=== PATIENT | female | born 1985 | race African-American/Black ===

== ENCOUNTER 2017-05-13 12:01 | Inpatient (IN) | payer SELFPAY ==
[~2017-05-13] VITALS: Ht 162.6 cm; Wt 108.3 kg
[2017-05-13 12:59] LABS: BASOPHILS 0.2 % (0-2); EOSINOPHILS 2.5 % (0-7); HEMATOCRIT 37.7 % (36.0-48.0); HEMOGLOBIN 12.3 g/dL (12-16); IMMATURE GRANULOCYTES 0.5 % (0-5); MCH 28.5 pg (26.0-34.0); MCHC 32.6 g/dL (31.0-37.0); MCV 87.5 fL (80.0-100.0); MEAN PLATELET VOLUME 10.5 fL (7.4-10.4); MONOCYTES 7.3 % (2-11); NEUTROPHILS 68.5 % (40-80); PLATELET COUNT 255 10x3/uL (130-400); RBC 4.31 10x6/uL (4.00-5.40); WBC 10.2 10x3/uL (4.8-10.8)
[2017-05-13 13:14] LABS: ALBUMIN 3.2 g/dL (3.4-5.0); ALKALINE PHOSPHATASE 75 U/L (46-116); ALT (SGPT) 15 U/L (10-68); BILIRUBIN - TOTAL 0.17 mg/dL (0.2-1.3); CALC OSMOLALITY 273 mosm/kg (275-300); CALCIUM 8.7 mg/dL (8.5-10.1); CARBON DIOXIDE 26.4 mmol/L (21.0-32.0); CHLORIDE - SERUM 105 mmol/L (98-107); CREATININE - SERUM 0.9 mg/dL (0.6-1.3); GLUCOSE 83 mg/dL (74-106); POTASSIUM - SERUM 4.1 mmol/L (3.5-5.1); PROTEIN - SERUM 7.7 g/dL (6.4-8.2); SODIUM 137 mmol/L (136-145); UREA NITROGEN 14 mg/dL (7-18); eGFR NON AFRICAN AMERICAN 78 mL/min (90-120)
[2017-05-13 13:15] LABS: CREATINE KINASE 41 UL (21-215); MAGNESIUM - SERUM 1.8 mg/dL (1.8-2.4)
[2017-05-13 13:30] LABS: UDS - AMPHET NEGATIVE QUAL (NEGATIVE); UDS - BARB NEGATIVE QUAL (NEGATIVE); UDS - BENZO NEGATIVE QUAL (NEGATIVE); UDS - COCAINE NEGATIVE QUAL (NEGATIVE); UDS - METH NEGATIVE QUAL (NEGATIVE); UDS - OPIATE NEGATIVE QUAL (NEGATIVE); UDS - PCP NEGATIVE QUAL (NEGATIVE); UDS - THC NEGATIVE QUAL (NEGATIVE)
[2017-05-13 13:31] LABS: APPEARANCE CLEAR (CLEAR); BILIRUBIN NEGATIVE (NEGATIVE); COLOR YELLOW (YELLOW); GLUCOSE NEGATIVE (NEGATIVE); KETONE NEGATIVE (NEGATIVE); LEUKOCYTE ESTERASE TRACE (NEGATIVE); NITRITE NEGATIVE (NEGATIVE); PH 7.5 (5.0-6.0); PROTEIN NEGATIVE (NEGATIVE); UROBILINOGEN NORMAL (NORMAL)
[2017-05-13 13:32] LABS: BACTERIA FEW /hpf (NONE SEEN); EPITHELIAL CELLS 0-5 /hpf (0-5); MUCUS <1+ /lpf (NONE SEEN); RED CELLS - URINE 0-5 /hpf (0-5); WHITE CELLS - URINE 0-5 /hpf (0-5)
--- NOTE | 2017-05-13 16:54 | NUR ---
1635 RECEIVED REPORT FROM SARITA IN ER. PATIENT TO UNIT SOON.
--- NOTE | 2017-05-13 17:04 | NUR ---
PT ARRIVED TO FLOOR VIA WHEELCHAIR BY ER STAFF. PT APPEARS TO BE CONFUSED ABOUT WHAT HAPPEN TO HER AND WHY SHE IS HERE AT THE HOSPITAL. PT HAS AN IV IN HER LEFT AC. LOPEZ DRAINING CLEAR YELLOW, DATED FOR 05/13/17. PT SMELLS OF A STRONG BODY ODOR. WILL ADMIT.
[2017-05-13 17:40] VITALS: BP 118/78; Ht 162.6 cm; Wt 108.3 kg
--- NOTE | 2017-05-13 18:15 | NUR ---
PATIENT RESTING IN BED WITH EYES OPEN. CALL LIGHT WITHIN REACH. ATTENTION TOWARD TELEVISON. NO DISTRESS.
[2017-05-13 20:00] VITALS: BP 107/69
--- NOTE | 2017-05-13 20:15 | NUR ---
PT ASKED IF SHE COULD TAKE THE LOPEZ CATH OUT AND IF SHE COULD GO OUTSIDE AND "SMOKE SOMETHING." PT IS A&O UNTIL I ASK ABOUT THE CURRENT SITUATION. INFORMED HER THAT THIS WAS A NON SMOKING CAMPUS. SHE STATES THAT SHE IS OKAY AT THE MOMENT, BUT WANTS A WARM BLANKET. WARM BLANKET DELIVERED TO HER. CALL LIGHT IN REACH. WILL CONT TO MONITOR.
--- NOTE | 2017-05-13 23:00 | NUR ---
SHIFT ASSESSMENT COMPLETE. PT A&O TO PERSON, PLACE AND TIME. SHE HAS CLEAR SPEECH WHEN SHE IS DISCUSSING ANYTHING ELSE OTHER THAN THE SITUATION AT HAND. WHEN ASKED ABOUT WHAT HAPPENED, SHE MUMBLES AND MAKES OUT SOME WORDS, BUT IT IS HARD TO UNDERSTAND HER. SHE STATES THAT SHE DOES LIVE WITH SOMEONE ELSE, BUT THAT WAS ALL THAT I WAS ABLE TO GET FROM HER REGUARDING THE SITUATION. HAND MAIL CLERKS SUPERVISOR ARE STRONG AND EQUAL WELL FOOT PUMPS. RADIAL AND PEDAL PULSES PALP. SKIN WARM TO TOUCH AND MOIST. SHE STATES THAT SHE IS COLD. IV IN L FOREARM INFUSING NS @ 50 ML/HR. PT STATES THAT SHE WANTS TO SLEEP AT THIS TIME AND SHE THINKS SHE IS DEHYDRATED. WILL CONT TO MONITOR CLOSELY. VSS. CALL LIGHT IN REACH.
[2017-05-14] VITALS: BP 110/69
--- NOTE | 2017-05-14 01:02 | NUR ---
EMPTIED 900 CC'S CLEAR YELLOW URINE. NO ACUTE DISTRESS NOTED. WILL CONT TO MONITOR.
[2017-05-14 04:00] VITALS: BP 108/74
--- NOTE | 2017-05-14 04:03 | NUR ---
PT SLEEPING ON BACK AT THIS TIME. NO SIGNS OF ACUTE DISTRESS NOTED. LOPEZ CATH DRAINING CLEAR YELLOW URINE. NS INFUSING AT 50 ML/HR. WILL CONT TO MONITOR.
--- NOTE | 2017-05-14 05:45 | NUR ---
PT SLEEPING AT THIS TIME. UPON AWAKENING HER SPEECH IS SLURRED. SHE STATES THAT SHE WANTS TO GO BACK TO BED AT THIS TIME. TV ON. CALL LIGHT IN REACH. NO SIGNS OF ACUTE DISTRESS NOTED. WILL CONT TO MONITOR.
--- NOTE | 2017-05-14 08:07 | NUR ---
AM ROUNDING- RECEIVED REPORT FROM CORRECTIVE THERAPIST NURSE PUMA. PT IS CURRENTLY LAYING IN BED ON BACK WITH EYES CLOSED RESTING. ON ROOM AIR. NO MONITOR. IV SEEN TO LEFT FOREARM WITH NS RUNNING AT 50CC. LOPEZ CATHETER SEEN. BED IS IN LOW POSITION AND CALL LIGHT IS IN REACH. WILL CONTINUE TO MONITOR AND CONTINUE WITH PLAN OF CARE.
[2017-05-14 08:13] VITALS: BP 105/49
[2017-05-14 12:01] VITALS: BP 118/76
--- NOTE | 2017-05-14 15:06 | NUR ---
UPON DOING PTS DAILY SHIFT ASSESSMENT, NOTICED PT APPEARS TO BE MUMBLING WORDS UNDER HER BREATH. PT ALSO ANSWERS QUESTIONS INAPPROPIATELY, LAUGHING TO SELF WHEN ASKING QUESTIONS. PT STATED WHILE DOING SHIFT ASSESMENT, "YOU CAN WRITE DOWN KIMBERLEE AND CALL ME THAT". PT APPEARS TO MAKE INAPPROPRIATE SOUND WHILE IN ROOM. WILL CONTINUE TO MONITOR.
[2017-05-14 16:01] VITALS: BP 124/66
--- NOTE | 2017-05-14 18:18 | NUR ---
PT IS CURRENTLY LAYING IN BED ON BACK WITH EYES OPEN RESTING. PT DENIES ANY NEED AT CURRENT TIME. CALL LIGHT IS IN REACH. WILL CONTINUE TO MONITOR.
[2017-05-14 20:00] VITALS: BP 119/76
--- NOTE | 2017-05-14 20:54 | NUR ---
PT AWAKE, ALERT, DENIES ANY NEEDS AT THIS TIME. I REVIEWED THE USE OF CALL LIGHT, PT STATED SHE UNDERSTOOD AND WOULD CALL WITH ANY NEEDS. PT IN NO ACUTE DISTRESS AT THIS TIME. CONTINUE TO MONITOR CLOSELY. BED LOW, CALL LIGHT IN REACH, SIDE RAILS X 2, HOB 35-40 DEGREES. PT IS PLEASANT, GIGGLES AFTER EACH VERBAL STATEMENT.
[2017-05-15] VITALS: BP 117/62
--- NOTE | 2017-05-15 00:21 | NUR ---
PT LYING IN BED, HEAD TURNED TO LEFT SIDE, EYES CLOSED, RESPIRATIONS EVEN AND UNLABORED, EASILY ROUSABLE TO VERBAL STIMULI. CONTINUE TO MONITOR CLOSELY.
[2017-05-15 04:00] VITALS: BP 113/71
--- NOTE | 2017-05-15 08:12 | NUR ---
SITTING UP IN BED EATING BREAKFAST. OFFERS NO COMPLAINTS. FLAT AFFECT. CALL LIGHT IN REACH. WILL CONTINUE TO MONITOR.
[2017-05-15 09:39] VITALS: BP 117/44
--- NOTE | 2017-05-15 10:22 | NUR ---
A FAMILY FRIEND SHOWED UP AT NURSES DESK INQUIRING ABOUT PT WENT INTO ROOM AND ASKED PT IF SHE KNEW THE MAN SHE STATED YES AND GAVE PERMISSION TO SPEAK WITH HIM. HIS NAME IS VENKAT ERIC [phone] AND STATES SHE HAS BEEN LIVING WITH HIM FOR THE PAST 4 YEARS. PT STATES THAT HE WILL NOT ALLOW HER TO LEAVE THE HOUSE, VENKAT STATES IT IS BECAUSE PT WILL NOT WEAR CLOTHES. VENKAT STATES PT ALWAYS RUNS OFF WHEN HE LEAVES THE HOUSE AND HAS TO GO LOOKING FOR HER. PT SEEMS TO DISAGREE BY SHAKING HER HEAD. WHEN VENKAT LEFT PT MUMBLED THE WORD "PIMP" I ASKED PT IF HE WAS HER PIMP DUE TO VENKAT STATING PT HAS DONE PROSTITUTION IN THE PAST AND HAS BEEN AT [employer] WELL. PT JUST SMILED IN RETURN. I ADVISED BRANDIN PROCESS INSPECTOR OF SITUATION.
--- NOTE | 2017-05-15 11:37 | NUR ---
UP IN SHOWER. NO DISTRESS. WILL CONTINUE TO MONITOR.
[2017-05-15 12:12] VITALS: BP 120/60
--- NOTE | 2017-05-15 13:50 | NUR ---
SPOKE WITH JUSTIN JON IN REGARDS TO DC LOPEZ AND IV IN ORDER TO GET PLACEMENT IN PSYCH FACILITY. JUSITN GAVE VERBAL ORDERS TO DC BOTH IV AND LOPEZ.
--- NOTE | 2017-05-15 14:29 | NUR ---
DC RIGHT FOREARM IV CATH TIP INTACT PRESSURE DRESSING INTACT. REMOVED 8ML NS FROM LOPEZ BULB AND REMOVED LOPEZ WITHOUT DIFFICULTY. PT TOLERATED WELL. LYING IN BED RESTING COMFORTABLY. WILL CONTINUE TO MONITOR
--- NOTE | 2017-05-15 15:00 | NUR ---
Patient Name: JUNIOR BENDER Admission Status: ER Accout number: [id number] Admission Date: 05-13-2017 : 1985 Admission Diagnosis: Attending: AYAN Current LOS: 2 Anticipated DC Date: 05-15-2017 Planned Disposition: Inpatient Psych Facility Primary Insurance: UNINSURED DISCOUNT PLAN PLANNED EXTERNAL PROVIDER: [facility] Discharge Planning Comments: * Is the patient Alert and Oriented? Yes 0 * How many steps to enter\\exit or inside your home? NONE 0 * PCP NONE 0 * Pharmacy "ANY PUBLIC PHARMACY" 0 * Preadmission Environment Home with Family 0 * ADLs Independent 0 * Equipment None 0 * Other Equipment NO MEDICAL EQUIPMENT PROVIDER PREFERNECE 0 * List name and contact numbers for known caregivers / representatives who currently or will assist patient after discharge: VENKAT ERIC, SIGNIFICANT OTHER, [address] [place] [place] [place]. [address], 0 * Community resources currently utilized None 0 * Please name any agencies selected above. NONE 0 * Additional services required to return to the preadmission environment? Yes * Can the patient safely return to the preadmission environment? Yes 0 * Has this patient been hospitalized within the prior 30 days at any hospital? No [address] GUTIERREZ WHO HAS EVALUATED PT AND INFORMED CM THAT PT WILL REQUIRE INPATIENT PSYCHIATRIC TREATMENT DUE TO SCHIZOPHRENIA. CM MET WITH PT IN ROOM TO DISCUSS DISCHARGE PLANNING AND NEEDS. PT REPORTS LIVING AT HOME INDEPENDENTLY AND ALONE. PT CANNOT TELL CM HER ADDRESS, REPORTS [address]WHERE OFF OF [facility]. PT DENIES LIVING IN [place], REPORTS SHE USED TO LIVE THERE ON [facility]. PT HAS NO MEDICAL EQUIPMENT AND NO OUTSIDE SERVICES ASSISTING IN THE HOME. CM DISCUSSED AVAILABILITY OF HOME HEALTH, REHAB SERVICES AND MEDICAL EQUIPMENT. PT DENIES DISCHARGE NEEDS, REPORTS SOMEONE WILL PICK HER UP FOR DISCHARGE HOME BUT SHE DOES NOT KNOW WHO. PT DENIES HAVING ANY PSYCHIATRIC OR PHYSICAL ILLNESS. PT REPORTS NOT HAVING ANY DOCTOR, NOT TAKING ANY MEDICINE AND NEVER HAVING BEEN IN PSYCHIATRIC HOSPITAL. PT HAS NO JOB AND DOES NOT RECEIVE DISABIITY. PT REPORTS SHE PAYS HER RENT, DOES NOT KNOW TO WHO NOR HOW SHE GETS MONEY FOR LIVING. CM ASKED PT WHO VENKAT WAS, PT DENIES KNOWING VENKAT. CM EXPLAINED THAT VENKAT ERIC HAD VISITED PT [facility] TODAY AND TOLD THE NURSE THAT PT LIVES WITH VENKAT. PT STATED SHE DID NOT KNOW THE ALLYSSA THAT VISITED HER TODAY. CM DISCUSSED DR. MIRAMONTES ASSESSMENT AND NEED FOR INPATIENT PSYCHIATRIC CARE. PT WILL GO VOLUNTARIALLY BUT AGAIN STATES SHE THINKS SHE IS OK. CM CALLED [facility] [employer], SPOKE TO DAYAN WHO REPORTS ONLY HAVING FAILURE TO APPEAR IN 2014 AND THEFT OF A BACK PACK IN 2013; BIRTHDATE VERIFIED. CM CALLED [facility]'S DEPARTMENT WHO HAD NO INFORMATION ON PT AND ONLY SHOWED THE [place] ADDRESS. CM CALLED [facility], , SPOKE TO MEGHNA AND FAXED REFERRAL FOR PLACEMENT; REQUEST MADE FOR CM TO CONTACT [facility] TO REQUEST ASSESSSMENT FOR CONTRACT PLACEMENT. CM CALLED [facility], , SPOKE TO JOCELYNN WHO WILL COME AND EVALUATE PT SHORTLY. JOCELYNN ADVISED THAT PT HAD INVOLUNTARY COMMITTMENT IN JANUARY 2017 AT [facility] FOR LIKE BEHAVIOR EXCEPT THAT SHE WAS ALSO SLAPPING HER SIGNIFICANT OTHER, VENKAT ERIC, WITH WHOM PT LIVES WITH. CM RECEIVED CALL FROM [facility] WHO INFORMED THAT [facility] HAS NO CAPABILITY FOR PT. CM NOTIFIED PT. JOCELYNN ARRIVED AND COMPLETED ASSESSMENT, APPROVED FOR PLACEMENT CONTRACT. CM CALLED [facility], , PROVIDED REFERRAL TO JUNIOR; CM FAXED REFERRAL TO [facility] [place] AT [phone]. CM CALLED AND SPOKE TO VENKAT ERIC, PT'S SIGNIFICANT OTHER, , WHO REPORTS THAT IT IS UNUSUAL FOR PT TO NOT REMEMBER HIM OR THEIR HOME ADDRESS. IT IS NOT UNUSUAL FOR PT TO LEAVE THE HOME AND WONDER WHEN HE LEAVES HER HOME ALONE. PT HAS BEEN DIAGNOSED WITH SCHIZOPHRENIA AT [facility] IN JANUARY BUT PT COULD NOT AFFORD THE MEDICATION PT HAS NO INSURANCE. THEY CANNOT APPLY FOR MEDICAID FOR PT SHE HAS NO IDENTIFICATION. PT WAS ABANDONED BY HER SISTER AND AFTER MEETING VENKAT, MOVED IN WITH HIM. VENKAT REPORTS HE MAY HAVE TO TAKE PT TO [place] TO GET AN ID FOR PT, HE IS NOT SURE. HE PLANS TO PICK PT UP AFTER DISCHARGE AND ASKED TO BE NOTIFIED. SOSA WAITING ADMISSION DETERMINATION FROM [facility]. Outdoor Power Equipment Mechanic: Joaquin Uriostegui
[2017-05-15 16:37] VITALS: BP 128/41
[2017-05-15 17:23] LABS: HCG URINE NEGATIVE (NEGATIVE)
--- NOTE | 2017-05-15 18:27 | NUR ---
CALLED REPORT TO IVELISSE AT [facility].
--- NOTE | 2017-05-15 20:03 | NUR ---
COBRA FORM INITIATED. PATIENT ACCEPTED BY DR JOLLY AT [facility]. SHE HAS BEEN ASSIGNED TO ROOM 219 BED II. PRIMARY NURSE CALLED REPORT TO IVELISSE HAYNES RN. CM CALLED [facility] FOR TRANSPORTATION VIA AMBULANCE. SPOKE WITH SYLVIA. PCS FORM COMPLETED. CM SPOKE WITH NURSING PROFESSOR OF VISUAL ARTS, GAVIOTA MARTINO , REGARDING PATIENT'S MENTAL STATUS. PATIENT CONSENTS TO TRANSFER BUT IS CONFUSED AND HAS VARYING DEGREES OF MENTATION. PATIENT'S ONLY CONTACT, VENKAT ERIC, HAD BEEN NOTIFIED OF PLAN FOR TRANSFER TO PSYCH FACILITY BY DEVELOPMENT DIRECTOR,SUZAN ZAVALA. PER PRIMARY MD, PSYCHIATRIST AND [facility] BEHAVIORAL WELLNESS COUNSELOR INPATIENT PSYCHIATRIC CARE WAS MOST APPROPRIATE FOR HER PRESENT STATE.
--- NOTE | 2017-05-15 20:12 | NUR ---
PT TAKEN VIA EMS PER ORDER AT THIS TIME. PT WAS INITIALLY UPSET, REFUSING TO GO, STATED SHE DID NOT NEED THERAPY, THAT SHE HAS A HOME ON [address], BUT EVENTUALLY CALMED DOWN AND BEGAN COOPERATING. PT TRANSFERRED FROM HER HOSPITAL BED TO THE EMS STRETCHER WITHOUT INCIDENT. PROPER PAPERWORK GIVEN TO EMS WORKERS, PT NOW GONE.
--- NOTE | 2017-05-15 20:14 | NUR ---
IV REMOVED PRIOR TO MY SHIFT, PTS BELONGINGS IN BAG ALSO GIVEN TO EMS AND TRANSPORTED WITH PT. PTS LOPEZ REMOVED PRIOR TO MY SHIFT. PT DENIED NEEDING TO USE BATHROOM, DENIED ANY NEEDS AT THIS TIME.
== END 2017-05-15 20:16 | disposition short-term general hospital (02) | DRG 948 ==
LOC: D.ER 12:01 → EDBD 15:43 → D.M2 15:43
PROVIDERS: Emergency Medicine; ADMIT Family Medicine
DX: R41.82 Altered mental status, unspecified (principal); F20.9 Schizophrenia, unspecified; I10 Essential (primary) hypertension; Z72.0 Tobacco use

== ENCOUNTER 2018-04-29 13:46 | Observation (INO) | payer MEDICAID ==
[~2018-04-29] VITALS: Ht 162.6 cm; Wt 85.6 kg
--- NOTE | ~2018-04-29 | MORECARE ---
CASE MANAGEMENT DISCHARGE SUMMARY PATIENT: JUNIOR BENDER UNIT: [id number] ADM DATE: 04/29/18 AGE: 32 : [birth year] SEX: F ROOM/BED: D.2599 AUTHOR: LING, PHYSICIAN: REFERRING PHYSICIAN: CINDY SARMIENTO DO DATE OF SERVICE: 04/29/18 Discharge Plan Patient Name: JUNIOR BENDER Facility: [facility]:[place] : 1985 Planned Disposition: Home Anticipated Discharge Date: 05/02/18 Discharge Date: Expected LOS: 3 Initial Reviewer: [email or web address] Initial Review Date: 04/29/2018 Generated: 05/02/18 6:15 pm Patient Name: JUNIOR BENDER Page [id number] All edits/amendments must be made on the electronic document DICTATION DATE: 05/02/181713 BUSINESS OPERATIONS DIRECTOR: 05/02/181713 RPT#: [id number] MO DATE: STATUS: ADM IN [facility] [address] [place] [address] END OF REPORT
[2018-04-29 14:26] LABS: BASOPHILS 0.1 % (0-2); EOSINOPHILS 0.1 % (0-7); HEMATOCRIT 37.3 % (36.0-48.0); IMMATURE GRANULOCYTES 0.4 % (0-5); LYMPHOCYTES 11.1 % (15-50); MCH 29.7 pg (26.0-34.0); MCHC 34.9 g/dL (31.0-37.0); MCV 85.4 fL (80.0-100.0); MEAN PLATELET VOLUME 11.4 fL (7.4-10.4); MONOCYTES 5.9 % (2-11); NEUTROPHILS 82.4 % (40-80); PLATELET COUNT 228 10x3/uL (130-400); RBC 4.37 10x6/uL (4.00-5.40); RDW 14.3 % (11.5-14.5)
[2018-04-29 14:45] LABS: APPEARANCE CLOUDY (CLEAR); BILIRUBIN NEGATIVE (NEGATIVE); COLOR DK YELLOW (YELLOW); GLUCOSE NEGATIVE (NEGATIVE); KETONE MODERATE mg/dL (NEGATIVE); NITRITE NEGATIVE (NEGATIVE); PROTEIN 1+ mg/dL (NEGATIVE); SPECIFIC GRAVITY 1.015 (1.005-1.020)
[2018-04-29 14:47] LABS: HCG SERUM NEGATIVE (NEGATIVE)
[2018-04-29 14:49] LABS: BACTERIA MODERATE /hpf (NONE SEEN); MUCUS >1+ /lpf (NONE SEEN); RED CELLS - URINE >50 /hpf (0-5)
[2018-04-29 15:10] LABS: ALBUMIN 3.8 g/dL (3.4-5.0); ALKALINE PHOSPHATASE 58 U/L (46-116); ALT (SGPT) 11 U/L (10-68); CALCIUM 9.1 mg/dL (8.5-10.1); CARBON DIOXIDE 26.9 mmol/L (21.0-32.0); CHLORIDE - SERUM 99 mmol/L (98-107); CREATININE - SERUM 0.9 mg/dL (0.6-1.3); PROTEIN - SERUM 7.8 g/dL (6.4-8.2); SODIUM 139 mmol/L (136-145); THYROID STIMULATING HORMONE 0.94 uIU/mL (0.36-3.74); UREA NITROGEN 4 mg/dL (7-18); eGFR NON AFRICAN AMERICAN 77 mL/min (90-120)
[2018-04-29 15:13] LABS: CALC OSMOLALITY 272 mosm/kg (275-300); GLUCOSE 62 mg/dL (74-106)
[2018-04-29 15:14] LABS: POTASSIUM - SERUM 2.8 mmol/L (3.5-5.1)
[2018-04-29 15:32] LABS: UDS - AMPHET NEGATIVE QUAL (NEGATIVE); UDS - BARB NEGATIVE QUAL (NEGATIVE); UDS - BENZO NEGATIVE QUAL (NEGATIVE); UDS - COCAINE NEGATIVE QUAL (NEGATIVE); UDS - OPIATE NEGATIVE QUAL (NEGATIVE); UDS - PCP NEGATIVE QUAL (NEGATIVE); UDS - THC NEGATIVE QUAL (NEGATIVE)
[2018-04-29 16:00] VITALS: BP 142/80
[2018-04-29] MEDS ORDERED: POTASSIUM CHLO20 MEQ PO (16:47)
[2018-04-29] MEDS ORDERED: MACROBID100 MG PO (16:47)
[2018-04-29 20:00] VITALS: BP 126/84
[2018-04-29 23:49] VITALS: BP 126/84; Ht 162.6 cm; Wt 85.6 kg
[2018-04-30] VITALS: BP 117/82
[2018-04-30 04:00] VITALS: BP 113/76
[2018-04-30 04:38] LABS: BASOPHILS 0.2 % (0-2); EOSINOPHILS 1.5 % (0-7); HEMATOCRIT 30.9 % (36.0-48.0); HEMOGLOBIN 10.8 g/dL (12-16); IMMATURE GRANULOCYTES 0.3 % (0-5); LYMPHOCYTES 28.6 % (15-50); MCH 29.6 pg (26.0-34.0); MCV 84.7 fL (80.0-100.0); MEAN PLATELET VOLUME 11.5 fL (7.4-10.4); NEUTROPHILS 62.4 % (40-80); PLATELET COUNT 202 10x3/uL (130-400); RBC 3.65 10x6/uL (4.00-5.40); RDW 14.7 % (11.5-14.5)
[2018-04-30 04:42] LABS: WBC 8.6 10x3/uL (4.8-10.8)
[2018-04-30 05:01] LABS: CALCIUM 8.5 mg/dL (8.5-10.1); CHLORIDE - SERUM 105 mmol/L (98-107); SODIUM 141 mmol/L (136-145); UREA NITROGEN 3 mg/dL (7-18)
[2018-04-30 05:12] LABS: CALC OSMOLALITY 278 mosm/kg (275-300); CREATININE - SERUM 0.6 mg/dL (0.6-1.3); GLUCOSE 122 mg/dL (74-106); eGFR NON AFRICAN AMERICAN > 90 mL/min (90-120)
[2018-04-30 08:55] VITALS: BP 126/80
[2018-04-30 12:26] VITALS: BP 135/87
[2018-04-30 17:36] VITALS: BP 128/86
[2018-04-30 20:00] VITALS: BP 122/74
[2018-05-01] VITALS: BP 113/81
[2018-05-01 04:00] VITALS: BP 128/91
[2018-05-01 05:06] LABS: BASOPHILS 0.3 % (0-2); EOSINOPHILS 2.4 % (0-7); HEMOGLOBIN 10.1 g/dL (12-16); IMMATURE GRANULOCYTES 0.3 % (0-5); LYMPHOCYTES 34.7 % (15-50); MCH 28.9 pg (26.0-34.0); MCHC 33.7 g/dL (31.0-37.0); MEAN PLATELET VOLUME 11.6 fL (7.4-10.4); MONOCYTES 7.3 % (2-11); PLATELET COUNT 195 10x3/uL (130-400); RBC 3.49 10x6/uL (4.00-5.40); RDW 15.2 % (11.5-14.5); WBC 7.4 10x3/uL (4.8-10.8)
[2018-05-01 05:35] LABS: ALKALINE PHOSPHATASE 61 U/L (46-116); CALC OSMOLALITY 274 mosm/kg (275-300); CALCIUM 8.1 mg/dL (8.5-10.1); CARBON DIOXIDE 30.7 mmol/L (21.0-32.0); CHLORIDE - SERUM 107 mmol/L (98-107); CREATININE - SERUM 0.5 mg/dL (0.6-1.3); GLUCOSE 88 mg/dL (74-106); POTASSIUM - SERUM 3.1 mmol/L (3.5-5.1); SODIUM 140 mmol/L (136-145); UREA NITROGEN 3 mg/dL (7-18); eGFR NON AFRICAN AMERICAN > 90 mL/min (90-120)
[2018-05-01 05:36] LABS: ALBUMIN 2.6 g/dL (3.4-5.0); ALT (SGPT) 15 U/L (10-68); PROTEIN - SERUM 5.7 g/dL (6.4-8.2)
[2018-05-01 08:29] VITALS: BP 125/89
[2018-05-01 11:59] VITALS: BP 87/41
[2018-05-01 15:30] VITALS: BP 140/84
[2018-05-01 20:00] VITALS: BP 139/83
[2018-05-02] VITALS: BP 124/83
[2018-05-02 04:00] VITALS: BP 117/69
[2018-05-02 05:15] LABS: ALBUMIN 2.6 g/dL (3.4-5.0); ALKALINE PHOSPHATASE 70 U/L (46-116); BILIRUBIN - TOTAL 0.24 mg/dL (0.2-1.3); CALC OSMOLALITY 276 mosm/kg (275-300); CALCIUM 7.9 mg/dL (8.5-10.1); CHLORIDE - SERUM 105 mmol/L (98-107); CREATININE - SERUM 0.5 mg/dL (0.6-1.3); GLUCOSE 88 mg/dL (74-106); POTASSIUM - SERUM 3.9 mmol/L (3.5-5.1); PROTEIN - SERUM 5.6 g/dL (6.4-8.2); SODIUM 141 mmol/L (136-145); UREA NITROGEN 3 mg/dL (7-18); eGFR NON AFRICAN AMERICAN > 90 mL/min (90-120)
[2018-05-02 05:19] LABS: ALT (SGPT) 11 U/L (10-68)
[2018-05-02 07:19] LABS: BASOPHILS 0.3 % (0-2); EOSINOPHILS 2.3 % (0-7); HEMATOCRIT 33.5 % (36.0-48.0); HEMOGLOBIN 11.2 g/dL (12-16); IMMATURE GRANULOCYTES 0.4 % (0-5); LYMPHOCYTES 34.6 % (15-50); MCH 29.1 pg (26.0-34.0); MCHC 33.4 g/dL (31.0-37.0); MEAN PLATELET VOLUME 12.6 fL (7.4-10.4); MONOCYTES 5.7 % (2-11); NEUTROPHILS 56.7 % (40-80); PLATELET COUNT 167 10x3/uL (130-400); RBC 3.85 10x6/uL (4.00-5.40); RDW 15.3 % (11.5-14.5); WBC 7.4 10x3/uL (4.8-10.8)
[2018-05-02 08:20] VITALS: BP 124/75
[2018-05-02] MEDS ORDERED: MACROBID100 MG PO (08:58)
[2018-05-02] MEDS ORDERED: POTASSIUM CHLO20 MEQ PO (09:01)
[2018-05-02 11:15] VITALS: BP 117/76
[2018-05-02 11:37] LABS: APPEARANCE HAZY (CLEAR); BILIRUBIN NEGATIVE (NEGATIVE); COLOR YELLOW (YELLOW); GLUCOSE NEGATIVE (NEGATIVE); KETONE NEGATIVE (NEGATIVE); NITRITE NEGATIVE (NEGATIVE); PROTEIN NEGATIVE (NEGATIVE); UROBILINOGEN NORMAL (NORMAL)
[2018-05-02 11:38] LABS: BACTERIA MODERATE /hpf (NONE SEEN); EPITHELIAL CELLS 0-5 /hpf (0-5)
[2018-05-02 11:39] LABS: MUCUS <1+ /lpf (NONE SEEN)
[2018-05-02 14:50] VITALS: BP 110/71
[2018-05-03] MEDS ORDERED: INVEGA6 MG/BLIST PO (16:29)
== END 2018-05-02 17:51 | disposition home or self-care (01) ==
LOC: D.ER 13:46 → D.M2 18:09 → OBSVTIME 18:09 → D.EDHOLD 18:09 → D.M2 19:57
PROVIDERS: Emergency Medicine; Family Medicine
DX: E87.6 Hypokalemia (principal); N39.0 Urinary tract infection, site not specified; I10 Essential (primary) hypertension

== ENCOUNTER 2018-05-02 22:28 | Observation (INO) | payer MEDICAID ==
[~2018-05-02] VITALS: Ht 162.6 cm; Wt 84.5 kg
--- NOTE | ~2018-05-02 | CN ---
PATIENT NAME:JUNIOR BENDER MEDICAL RECORD: [id number] : [birth year] LOCATION:D.MS [id number] ADMIT DATE: 05/03/18 ACCOUNT: [id number] CONSULTING PHYSICIAN: KAYLIE KELLEY MD REFERRING PHYSICIAN: FREDDY BOUDREAUX MD DATE OF CONSULTATION: 05/03/2018 IDENTIFYING DATA: The patient is 32 years old and she is admitted to the hospital on observation status. CHIEF COMPLAINT: None. HISTORY OF PRESENT ILLNESS: The patient was hospitalized for a couple of days earlier this week secondary to urinary tract infection. Upon discharge, she was put in a taxi cab and sent home. When she got home, she refused to get out of the cab and asked to be taken somewhere else, but refused to get out there as well. After quite a bit of running around, the taxicab dispatcher had run up an 80 dollar bill and took her back to the Emergency Room where she was readmitted because of mental status changes and the possibility of needing to be sent inpatient. Inpatient is meaning psychiatric inpatient. She refused to let the nurse admit her last night, said she was afraid of her and would not answer questions. The patient is denying auditory and visual hallucinations as well as thoughts of harming herself or others, but is very disorganized and suspicious. She is clearly attending to stimuli not present. She had a similar episode a year ago and was hospitalized at [facility] in [place]. MENTAL STATUS EXAMINATION: The patient is awake, alert and oriented to person and place only. Her mood is flat. Her affect is constricted. Thought processes are grossly disorganized with severe impairment of her memory, concentration, and abstraction abilities. Although she denies auditory and visual hallucinations, she is clearly paranoid and attending to stimuli not present. She denies that she would seek to harm others or herself. ASSESSMENT: Schizophrenia, chronic undifferentiated. PLAN: The patient in my opinion should be hospitalized on the behavioral unit. She is not taking any psychoactive medicines even though she has a history of schizophrenia. She told me she has never seen a psychiatrist and has never been hospitalized for mental health reasons. That was contradicted by records that I reviewed after seeing her. She clearly is in need of inpatient care, but at this time, I would not think that it would be something that she could be held against her will and forced to go against her will. I am recommending inpatient treatment. TRANSINT:[id number] Voice Confirmation ID: [id number] DOCUMENT ID: [id number] KAYLIE KELLEY MD at 0754 CC: [id number] DICTATION DATE: 05/03/18 141 FOOTWEAR SALES COORDINATOR: 05/03/18 1428 DIS IN 05/03/18 [place] [id number] [place] [id number]
[~2018-05-02 22:28] MED LIST: MACROBID100 MG PO; POTASSIUM CHLO20 MEQ PO
[2018-05-02 23:05] LABS: UDS - AMPHET NEGATIVE QUAL (NEGATIVE); UDS - BARB NEGATIVE QUAL (NEGATIVE); UDS - BENZO NEGATIVE QUAL (NEGATIVE); UDS - COCAINE NEGATIVE QUAL (NEGATIVE); UDS - OPIATE NEGATIVE QUAL (NEGATIVE); UDS - PCP NEGATIVE QUAL (NEGATIVE); UDS - THC NEGATIVE QUAL (NEGATIVE)
[2018-05-02 23:14] LABS: APPEARANCE HAZY (CLEAR); BILIRUBIN NEGATIVE (NEGATIVE); COLOR YELLOW (YELLOW); GLUCOSE NEGATIVE (NEGATIVE); KETONE NEGATIVE (NEGATIVE); NITRITE NEGATIVE (NEGATIVE); PROTEIN NEGATIVE (NEGATIVE); SPECIFIC GRAVITY 1.005 (1.005-1.020); UROBILINOGEN NORMAL (NORMAL)
[2018-05-02 23:15] LABS: BASOPHILS 0.2 % (0-2); HEMATOCRIT 32.3 % (36.0-48.0); IMMATURE GRANULOCYTES 0.2 % (0-5); LYMPHOCYTES 26.4 % (15-50); MCH 29.6 pg (26.0-34.0); MCHC 34.1 g/dL (31.0-37.0); MCV 86.8 fL (80.0-100.0); MEAN PLATELET VOLUME 10.6 fL (7.4-10.4); MONOCYTES 6.2 % (2-11); RBC 3.72 10x6/uL (4.00-5.40); RDW 15.2 % (11.5-14.5); WBC 8.5 10x3/uL (4.8-10.8)
[2018-05-02 23:17] LABS: BACTERIA MODERATE /hpf (NONE SEEN); EPITHELIAL CELLS 0-5 /hpf (0-5); MUCUS <1+ /lpf (NONE SEEN); RED CELLS - URINE 0-5 /hpf (0-5); WHITE CELLS - URINE 0-5 /hpf (0-5)
[2018-05-02 23:17] LABS: PLATELET COUNT 228 10x3/uL (130-400)
[2018-05-02 23:34] LABS: ALBUMIN 3.1 g/dL (3.4-5.0); ALKALINE PHOSPHATASE 69 U/L (46-116); ALT (SGPT) 12 U/L (10-68); BILIRUBIN - TOTAL 0.19 mg/dL (0.2-1.3); CALCIUM 8.1 mg/dL (8.5-10.1); CARBON DIOXIDE 29.3 mmol/L (21.0-32.0); CHLORIDE - SERUM 104 mmol/L (98-107); GLUCOSE 96 mg/dL (74-106); PROTEIN - SERUM 6.6 g/dL (6.4-8.2); SODIUM 140 mmol/L (136-145)
[2018-05-02 23:37] LABS: CALC OSMOLALITY 277 mosm/kg (275-300); CREATININE - SERUM 0.8 mg/dL (0.6-1.3); POTASSIUM - SERUM 3.2 mmol/L (3.5-5.1); UREA NITROGEN 9 mg/dL (7-18); eGFR NON AFRICAN AMERICAN 89 mL/min (90-120)
[2018-05-03 04:00] VITALS: BP 112/80
[2018-05-03 05:49] VITALS: BP 128/89; Ht 162.6 cm; Wt 84.5 kg
[2018-05-03 09:00] VITALS: BP 135/87
[2018-05-03 12:17] VITALS: BP 123/86
[2018-05-03 16:26] VITALS: BP 111/73
[2018-05-03] MEDS ORDERED: INVEGA6 MG/BLIST PO (16:29)
== END 2018-05-03 21:51 | disposition home or self-care (01) ==
LOC: D.ER 22:28 → D.MS 05-03 03:16 → D.EDHOLD 05-03 03:16 → OBSVTIME 05-03 03:16 → D.MS 05-03 03:53
PROVIDERS: Family Medicine
DX: F20.5 Residual schizophrenia (principal)

== ENCOUNTER 2018-05-23 16:47 | Emergency (ER) | payer MEDICAID ==
[~2018-05-23] VITALS: Ht 162.6 cm; Wt 85.0 kg
[~2018-05-23 16:47] MED LIST changes: +INVEGA6 MG/BLIST PO
[2018-05-23 16:50] VITALS: Ht 162.6 cm; Wt 85.0 kg
[2018-05-23 17:31] LABS: UDS - AMPHET NEGATIVE QUAL (NEGATIVE); UDS - BARB NEGATIVE QUAL (NEGATIVE); UDS - BENZO NEGATIVE QUAL (NEGATIVE); UDS - COCAINE NEGATIVE QUAL (NEGATIVE); UDS - OPIATE NEGATIVE QUAL (NEGATIVE); UDS - PCP NEGATIVE QUAL (NEGATIVE); UDS - THC NEGATIVE QUAL (NEGATIVE)
[2018-05-23 17:37] LABS: APPEARANCE HAZY (CLEAR); COLOR YELLOW (YELLOW); GLUCOSE NEGATIVE (NEGATIVE); KETONE NEGATIVE (NEGATIVE); PROTEIN TRACE mg/dL (NEGATIVE); SPECIFIC GRAVITY 1.025 (1.005-1.020); UROBILINOGEN NORMAL (NORMAL)
[2018-05-23 17:38] LABS: BILIRUBIN NEGATIVE (NEGATIVE)
[2018-05-23 17:40] LABS: NITRITE NEGATIVE (NEGATIVE)
[2018-05-23 17:41] LABS: BACTERIA MANY /hpf (NONE SEEN); MUCUS >1+ /lpf (NONE SEEN); RED CELLS - URINE 0-5 /hpf (0-5); WHITE CELLS - URINE 0-5 /hpf (0-5)
[2018-05-23 17:42] LABS: AMORPHOUS SEDIMENT <1+ /lpf (NONE SEEN); GRANULAR CAST OCC /lpf (NONE SEEN); HYALINE CAST OCC /lpf (NONE SEEN)
[2018-05-23 17:47] LABS: BASOPHILS 0.1 % (0-2); EOSINOPHILS 0.7 % (0-7); HEMATOCRIT 33.7 % (36.0-48.0); HEMOGLOBIN 11.4 g/dL (12-16); IMMATURE GRANULOCYTES 0.5 % (0-5); LYMPHOCYTES 19.3 % (15-50); MCH 30.1 pg (26.0-34.0); MCHC 33.8 g/dL (31.0-37.0); MCV 88.9 fL (80.0-100.0); MEAN PLATELET VOLUME 10.1 fL (7.4-10.4); MONOCYTES 4.9 % (2-11); NEUTROPHILS 74.5 % (40-80); PLATELET COUNT 259 10x3/uL (130-400); RBC 3.79 10x6/uL (4.00-5.40); RDW 14.8 % (11.5-14.5); WBC 11.1 10x3/uL (4.8-10.8)
[2018-05-23 18:15] LABS: ALBUMIN 3.1 g/dL (3.4-5.0); ALKALINE PHOSPHATASE 80 U/L (46-116); ALT (SGPT) 14 U/L (10-68); BILIRUBIN - TOTAL 0.18 mg/dL (0.2-1.3); CALC OSMOLALITY 274 mosm/kg (275-300); CALCIUM 8.6 mg/dL (8.5-10.1); CARBON DIOXIDE 27.7 mmol/L (21.0-32.0); CHLORIDE - SERUM 102 mmol/L (98-107); CREATININE - SERUM 0.8 mg/dL (0.6-1.3); GLUCOSE 99 mg/dL (74-106); POTASSIUM - SERUM 3.8 mmol/L (3.5-5.1); PROTEIN - SERUM 7.6 g/dL (6.4-8.2); SODIUM 138 mmol/L (136-145); UREA NITROGEN 9 mg/dL (7-18); eGFR NON AFRICAN AMERICAN 89 mL/min (90-120)
[2018-05-24 12:22] VITALS: BP 122/64
== END 2018-05-24 12:59 | disposition home or self-care (01) ==
LOC: D.ER 16:47
PROVIDERS: Family Medicine
DX: F20.9 Schizophrenia, unspecified (principal)